=== PATIENT | female | born 1995 | race Hispanic/Latino ===

== ENCOUNTER → 2021-07-13 07:21 | Outpatient (CLI) | payer OTHER, SELFPAY ==
[2021-07-13 08:54] LABS: Glucose Fasting 91 mg/dL (70-100)
[2021-07-13 10:45] LABS: Glucose Tol Interpretation INTERPRETATION
[2021-07-13 10:57] LABS: Glucose 1 Hour 155 mg/dL (70-170)
[2021-07-13 10:59] LABS: Glucose 2 Hour 175 mg/dL (70-140)
[2021-07-13 11:39] LABS: Glucose 3 Hour 103 mg/dL (70-115)
== END ==
PROVIDERS: Referring Provider Nurse Practitioner Obstetrics & Gynecology; Visit Provider Nurse Practitioner Obstetrics & Gynecology
DX: Z34.90 Encounter for supervision of normal pregnancy, unspecified, unspecified trimester (principal); Z13.1 Encounter for screening for diabetes mellitus; Z3A.16 16 weeks gestation of pregnancy
CPT/HCPCS: 36415; 82951; 82952

== ENCOUNTER → 2021-07-20 10:31 | Outpatient (CLI) | payer OTHER, SELFPAY ==
--- NOTE | 2021-07-20 | DI.US.S_ITS ---
PROCEDURE: US OB >= 14 WEEKS FETUS INDICATIONS: ANATOMY SCAN OUTSIDE/PRIOR DATING DATA: Last menstrual period (LMP): 02/06/2021 LMP-based estimated date of delivery (FABIO): 11/03/2021. First dating scan (date and location): 07/20/2021. Estimated date of delivery (FABIO) from first dating scan: 11/13/2021 The calculations are made using the ultra FABIO of 11/13/2021. TECHNIQUE: Real-time scanning was performed of the fetus, with image documentation and biometric measurements. COMPARISON: None. FINDINGS: General: A single living intrauterine gestation is present. Presentation: Vertex. Placenta: Placental position is anterior , without previa. Amniotic fluid index: 18.4 cm, normal range is 5-24 cm. heart rate: 144 beats per minute. Maternal cervical canal: 4.5 cm long. Normal lower limit is 2.5 cm. biometrics: Biparietal diameter: 23 weeks 1 day Head circumference: 23 weeks Abdominal circumference: 23 weeks 3 days Femur length: 23 weeks 6 days Clinically estimated gestational age: 23 weeks 3 days Composite gestational age from present scan: 23 weeks 3 days Estimated weight and percentile: 602 g; 46 percentile Anatomic survey: Neuro: Ventricles are non-dilated at less than 10 mm. Cisterna magna is normal at 3-11 mm. Cerebellum is normal in size and morphology. Nuchal skin fold: Normal at less than 6 mm between 14-21 weeks gestational age. Face: Nose and lips, facial profile are normal. Spine: No evidence for spina bifida. Heart: 4-chambered heart is present, with normal ventricular outflow tracts. Diaphragm: Diaphragm is intact. Stomach: Left-sided stomach is present. Kidneys: No hydronephrosis. Normal is less than 5 mm in 2nd trimester, less than 7 mm in 3rd trimester. Cord: 3-vessel cord has orthotopic insertion. Bladder: Normal in size. Extremities: All 4 extremities identified. IMPRESSION: 1. 23 week 3 day single living IUP corresponding to ultrasound FABIO of 11/13/2021. 2. Normal anatomic survey. We strive to produce accurate, complete, and clear reports of imaging services. To assist us in improving patient care, this report was composed using standard report templates and voice recognition software. Therefore, it may contain abnormal punctuation, insertions and/or omissions. Occasional wrong-word or sound-alike substitutions may occur. Though we review the report and make efforts to correct it, we do recommend that the report be read carefully in proper context to recognize any text inaccuracies. Dictated by: Rg ANDRADE Interpreted: Vinod Martin MD on 07/20/2021 at 13:07 Transcribed by: DEANDRE on 07/20/2021 at 13:10 Approved by: Vinod Martin M.D. on 07/20/2021 at 15:15
== END ==
PROVIDERS: Referring Provider Nurse Practitioner Obstetrics & Gynecology; Visit Provider Nurse Practitioner Obstetrics & Gynecology
DX: Z34.92 Encounter for supervision of normal pregnancy, unspecified, second trimester (principal); Z3A.23 23 weeks gestation of pregnancy
CPT/HCPCS: 76811

== ENCOUNTER → 2021-08-22 11:49 | Outpatient (CLI) | payer OTHER, SELFPAY ==
[2021-08-22 13:37] LABS: Hematocrit 35.8 % (36-46); Hemoglobin 12.2 g/dL (12.0-16.0); Mean Corpuscular Hemoglobin 30.3 PG (26-34); Platelet Count 275 X10^3/uL (150-400); Red Blood Cell Count 4.03 X10^6/uL (4.0-5.2); Red Cell Distribution Width 12.9 % (11.6-14.8); White Blood Cell Count 8.1 X10^3/uL (4.5-11.0)
[2021-08-22 14:03] LABS: Glucose Fasting 81 mg/dL (70-100)
[2021-08-22 14:29] LABS: Glucose 1 Hour 141 mg/dL (70-170)
[2021-08-22 15:32] LABS: Glucose 2 Hour 128 mg/dL (70-140)
[2021-08-22 15:41] LABS: Glucose Tol Interpretation INTERPRETATION
[2021-08-22 17:29] LABS: Glucose 3 Hour 110 mg/dL (70-115)
== END ==
PROVIDERS: Referring Provider Nurse Practitioner Obstetrics & Gynecology; Visit Provider Nurse Practitioner Obstetrics & Gynecology
DX: Z34.90 Encounter for supervision of normal pregnancy, unspecified, unspecified trimester (principal); Z13.1 Encounter for screening for diabetes mellitus; Z3A.28 28 weeks gestation of pregnancy
CPT/HCPCS: 82951; 82952; 85027

== ENCOUNTER → 2021-10-17 17:03 | Outpatient (ROUT) | payer OTHER, SELFPAY | PROVIDERS: Visit Provider Nurse Practitioner Obstetrics & Gynecology | DX: Z34.90 Encounter for supervision of normal pregnancy, unspecified, unspecified trimester (principal); Z36.85 Encounter for antenatal screening for Streptococcus B; Z3A.36 36 weeks gestation of pregnancy | CPT/HCPCS: 87081 ==

== ENCOUNTER → 2021-11-03 11:01 | Outpatient (CLI) | payer OTHER, SELFPAY ==
--- NOTE | 2021-11-03 11:02 | DI.US.S_ITS ---
PROCEDURE: US OB FOLLOW UP INDICATIONS: Growth OUTSIDE/PRIOR DATING DATA: Last menstrual period (LMP): February 06, 2021. LMP-based estimated date of delivery (FABIO): November 13, 2021. First dating scan (date and location): July 20, 2021. Estimated date of delivery (FABIO) from first dating scan: November 13, 2021. TECHNIQUE: Real-time scanning was performed of the fetus, with image documentation and biometric measurements. Endovaginal scanning: Not performed COMPARISON: None. FINDINGS: General: A single living intrauterine gestation is present. Presentation: Cephalic. Placenta: Placental position is anterior , without previa. A few placental calcifications are noted. Amniotic fluid index: 7.8 cm, normal range is 5-24 cm. Single deepest vertical pocket is 2.6 cm. heart rate: 140 beats per minute. Maternal cervical canal: Not well visualized secondary to positioning and advanced gestational age. biometrics: Biparietal diameter: 9.14 cm, 37 weeks and 1 day Head circumference: 33.4 cm, 38 weeks and 1 day Abdominal circumference: 34.1 cm, 38 weeks and 0 days Femur length: 7.4 cm, 38 weeks and 0 days Estimated gestational age based off initial scan: 38 weeks and 4 days Composite gestational age from present scan: 37 weeks and 6 days Estimated weight and percentile: 3349 g which correlates with the 50th percentile based off gestational age Other: Not applicable. IMPRESSION: Single living intrauterine gestation with estimated sonographic gestational age of approximately 37 weeks and 6 days versus 38 weeks and 4 days based off initial ultrasound. Expected interval growth has occurred. Low four-quadrant OBDULIA measuring 7.8 cm which measures less than the 5th percentile for gestational age. We strive to produce accurate, complete, and clear reports of imaging services. To assist us in improving patient care, this report was composed using standard report templates and voice recognition software. Therefore, it may contain abnormal punctuation, insertions and/or omissions. Occasional wrong-word or sound-alike substitutions may occur. Though we review the report and make efforts to correct it, we do recommend that the report be read carefully in proper context to recognize any text inaccuracies. Dictated by: Hu Gibson M.D. on 11/03/2021 at 13:52 Approved by: Hu Gibson M.D. on 11/03/2021 at 13:58
== END ==
PROVIDERS: Referring Provider Nurse Practitioner Obstetrics & Gynecology; Visit Provider Nurse Practitioner Obstetrics & Gynecology
DX: O99.213 Obesity complicating pregnancy, third trimester (principal); O26.843 Uterine size-date discrepancy, third trimester
CPT/HCPCS: 76816

== ENCOUNTER 2021-11-19 13:27 | Inpatient (IN) | payer OTHER, SELFPAY ==
--- NOTE | 2021-11-19 14:04 | PM.OBHP.1 ---
OB HPI Date/Time Date of admission: 11/19/21 Date Patient Seen: 11/19/21 Time Patient Seen: 14:04 History of Present Condition Chief complaint: Eval of Labor : 1 Para: 0 Estimated Date of Delivery: 11/13/21 Estimated Gestational Age (weeks): 40.6 Narrative: Swetha Park is a 26 year old female @ [id number] by LMP and early US who presents for evaluation of labor. Awoke at 0700 with mild, regular contractions. Was seen in clinic this morning with reassuring post dates testing and CE 580/-1, membranes swept. Uncomplicated PN care w/ CNM. Desires low intervention . History of Present care: good care, initiated at week # (10), number of visits (11) and pounds weight gain (3) Dating criteria: LMP confirmed by 1st trimester US Ultrasounds: normal mid trimester US Obstetrical complications: none Medical complications: none Preadmission Labs Blood type: B (+) positive -: Antibody screen: negative, GBS status: negative, HBsAG: negative, HIV: negative and RPR/VDLR: negative -: Chlamydia screen: not detected and Gonorrhea screen: not detected -: Rubella: immune and Varicella: immune HCT: 35.8 HCAB: negative PAP: Normal Cell-free DNA: Negative, female 3 hr GTT: 1 hr (141), 2 hr (128) and 3 hr (110) Fasting blood glucose: 81 Evaluation Evaluation Baseline heart rate: 140 Variability: Moderate (11-25) monitor accelerations: Present Monitor Decelerations: Absent Contraction Frequency (minutes): 3 Uterine Contraction Intensity: Strong/Firm Status: Category l Dilation (cm): 5 Effacement (%): 80 Dilation: >/=5 cm Effacement: >/=80% station: -1 Position of cervix: mid Consistency: soft Morales score: 11 Comments: CE deferred, exam from clinic this morning [facility] Medical History (Updated 11/19/21 @ 14:18 by Evelyn Umanzor CNM) Morbid obesity with BMI of 40.0-44.9, adult Family History (Updated 11/19/21 @ 14:19 by Evelyn Umanzor CNM) Father Hypertension Mother Cancer Diabetes mellitus Social History Smoking Status: Former smoker Meds Home Medications and Allergies Home Medications Medication Instructions Recorded Confirmed Type No Known Home Medications 01/19/21 01/19/21 History Allergies Allergy/AdvReac Type Severity Reaction Status Date / Time No Known Drug Allergies Allergy Unverified 01/19/21 15:54 Review of Systems Review of Systems ROS: Yes All systems reviewed with the patient and are negative except as otherwise documented OB Exam Resp Effort & Inspection: normal respiratory effort Auscultation: clear to auscultation bilaterally Cardio Rate: regular rate Rhythm: regular rhythm Heart Sounds: S1 normal and S2 normal Presentation: vertex Assessment and Plan Assessment and Plan Assessment and Plan narrative: A: Term nullipara Active labor No indication for GBS porphylaxis Cat I FHR P: Admit, routine labor orders. Labor support PRN. Reassess in 4 hours or sooner, PRN. Time Spent with Patient Total time spent with greater than 50% in coordination of care (as documented) at patient's floor/unit and/or counseling patient:: 25 - 35 minutes
[2021-11-19 14:40] LABS: Add Manual Diff / Slide Review NO; Basophils Absolute Auto 0 /uL (0-100); Basophils Percent Auto 0.3 % (0-2); Eosinophils Absolute Auto 0 /uL (0-450); Eosinophils Percent Auto 0.4 % (2-4); Hematocrit 37.1 % (36-46); Hemoglobin 12.8 g/dL (12.0-16.0); Lymphocytes Absolute Auto 1300 /uL (1100-4500); Lymphocytes Percent Auto 12.3 % (25-40); Mean Corpuscular HGB Conc 34.4 % (30-36); Mean Corpuscular Hemoglobin 30.1 PG (26-34); Mean Corpuscular Volume 87.3 fL (80-100); Monocytes Absolute Auto 400 /uL (0-900); Neutrophils Absolute Auto 8800 /uL (1500-7000); Platelet Count 217 X10^3/uL (150-400); Red Blood Cell Count 4.24 X10^6/uL (4.0-5.2); Red Cell Distribution Width 13.3 % (11.6-14.8); White Blood Cell Count 10.6 X10^3/uL (4.5-11.0)
[2021-11-19 14:55] LABS: COVID19 -Nasal RAPID Negative (Negative)
[2021-11-19] MEDS: LACTATED RINGERS 1,000 ML 100 ML IV (21:30)
--- NOTE | 2021-11-20 02:16 | PM.OBPNLAB ---
Date/Time Date Patient Seen: 11/19/21 Time Patient Seen: 22:20 Pain Control Pain control: epidural Comments: Patient labored well int hte tub and in bed on her side. Coping decreased with increasing pelvic pressure and epidural was requested and placed. Now resting comfortably with an epidural. VS: BP 112/59, HR 85bpm, T 35.9F Temporal Pelvic Exam Dilation (cm): 8 Effacement (%): 90 station: -1 Amniotic membrane status: Intact Contractions Monitor mode: External Pitocin rate (mU/min): 0 Contraction frequency (min): 3 Contraction duration (min): 2 Contraction pattern: Regular Contraction intensity: Strong/Firm Status status: Category l Heart Rate Baseline: 140 Monitor Accelerations: Present Monitor Decelerations: Absent Monitor Variability: Moderate Assessment and Plan Assessment: active labor Plan: continuous present management
--- NOTE | 2021-11-20 03:36 | PM.OBPRVD ---
Labor & Delivery Delivery date: 11/20/21 Intrapartal Events: None Cervical ripening method: none Induction method: none Delivery monitor: external FHT and external uterine Route of delivery: Episiotomy description: None L&D Laceration Description: Periurethral - 1st Degree (right) Delivery repair: chromic (3.0) Estimated blood loss (mL): 150 Anesthesia Type: Epidural Narrative: Swetha labored well with an epidural. Was checked and found to be C/C/0 with a BBOW. Pishing was immediately effective w/ SROM for meconium stained fluid. RT was called to standby for the . NSVB of a vigorous baby girl in JANICE position with CNM hands over FOB hands. There was no nuchal cord and the shoulders delivered without additional maneuvers. [place] was lifted to maternal abdomen for drying and skin to skin. Strong cry with Apgars 9/9, RT services were not utilized. 30 units of pitocin in 500mL LR was started at 250mL/hr for AMTSL. After cessation of pulsation, the cord was double clamped by CNM and cut by FOB. Cord blood sample was collected. Gentle cord traction and single maternal push led to spontaneous, Schultze delivery of an apparently intact placenta, membranes and 3VC. Fundus immediately form and bleeding minimal. Right side, 1st degree periurethral split was repaired with 3.0 chromic under adequate epidural anesthesia for good approximation. QBL 150mL. Both mother and baby stable and skin to skin as I left the room. [place] Baby 1: gender: Female Presentation: vertex Position: Right Occiput Anterior Placenta delivery description: Spontaneous Cord Vessel Description: 3 Vessels score (1 min): 9 score (5 min): 9 weight: 3.479 kg Plan for aftercare: Routine care
[2021-11-20] MEDS: ACETAMINOPHEN 325 MG TABLET 650 MG PO ×2 (04:27→10:27)
[2021-11-20] MEDS: IBUPROFEN 600 MG TABLET PO (04:28)
[2021-11-20] MEDS: LANOLIN OINT 7 GM 1 APPLIC TOP (04:29)
[2021-11-20] MEDS: DERMOPLAST SPRAY 20% 60 ML 1 SPRAY TOP (04:29)
[2021-11-20] MEDS: KETOROLAC 30 MG/ML VIAL IV (10:26)
[2021-11-20] MEDS: DOCUSATE 100 MG CAPSULE PO (10:27)
--- NOTE | 2021-11-21 08:02 | PM.OBDS.1 ---
Discharge Providers Provider Date of admission: 11/19/21 13:27 Discharge Date: 11/21/21 Consults: 11/21/21 03:34 Consult to [employer] Routine Comment: Discharge provider: Evelyn Umanzor CNM Summary Hospital Course Date Patient Seen: 11/21/21 Time Patient Seen: 08:02 Diagnoses: O70.0 Hospital Course: PPD1: Stable s/p NSVB with 1st degree periurethral laceration. Voiding and ambulating independently. improved throughout the night with RN assistance, awaiting IBCLC consultation today. Minimal pain is well controlled with PO medication. Vaginal bleeding is light to moderate without clots. Tolerating a general diet. Feeling ready for discharge to home today. Peripartum Data Delivery Method: Natural Vaginal Laceration Description: None Episiotomy description: None complications: none [place] 1: Gender: Female Discharge Diagnosis (1) Del w/ 1 deg lac-unsp: Start Date: 11/20/21 Start Time: 02:57 Status: Acute Status at Discharge Cognitive/behavioral status at discharge: oriented and calm Functional status at discharge: independent ambulation Overall status at discharge: patient is progressing back to baseline Time Spent with Patient Time attestation: Total time spent providing and/or coordinating discharge services: Objective Labs Result Diagrams: 11/19/21 14:30 Exam Vital Signs (past 8 hours): BP 90/56mmHg, HR 74bpm, RR 15/min, T 97.5F Temporal Other: Fundus firm @ U-1, lochia light, no clots. Discharge Plan Discharge Plan Patient Disposition: Home Discharge orders & Medications Prescriptions: New ibuprofen 600 mg Tablet 600 mg PO Q6HR PRN (Reason: Pain, Mild (1-3)) 14 Days Qty: 50 0RF Follow up/Referrals: Evelyn Umanzor CNM [[facility]] - (Follow-up by phone 12/01/21 @ 11:00am Follow-up in office Sunday12/30/21 @ 10:45am) Diet/Activity/Treatments Diet: Regular Activity: Pelvic rest x 6 weeks Skin/Wound/Dressing Care Report to your healthcare provider any signs of infection, such as:: chills, fever, increased pain, unusual drainage and unusual redness Visit Report/Discharge Packet Instructions: DI for Depression
[2021-11-21 12:38] VITALS: BP 114/75; PULSE 82; RESP 18; TEMP 36.4
== END 2021-11-21 12:20 | disposition home or self-care (01) | DRG 807 ==
PROVIDERS: Admitting Provider Nurse Practitioner Obstetrics & Gynecology; Referring Provider Nurse Practitioner Obstetrics & Gynecology; Visit Provider Nurse Practitioner Obstetrics & Gynecology
DX: O48.0 Post-term pregnancy (principal); Z37.0 Single live birth; Z3A.40 40 weeks gestation of pregnancy; O70.0 First degree perineal laceration during delivery; O77.0 Labor and delivery complicated by meconium in amniotic fluid; O99.214 Obesity complicating childbirth; E66.01 Morbid (severe) obesity due to excess calories; Z20.822 Contact with and (suspected) exposure to COVID-19
CPT/HCPCS: 01967; 36415; 59050; 85025; 86850; 86900; 86901; 87635; C9803; G0379; J1885

== ENCOUNTER → 2022-08-03 16:10 | Outpatient (CLI) | payer OTHER, SELFPAY ==
--- NOTE | 2022-08-03 | DI.US.S_ITS ---
PROCEDURE: US OB >= 14 WEEKS FETUS INDICATIONS: 20 WEEK ANATOMY SCAN OUTSIDE/PRIOR DATING DATA: Last menstrual period (LMP): Not available. LMP-based estimated date of delivery (FABIO): Not available. First dating scan (date and location): 08/03/2022. Estimated date of delivery (FABIO) from first dating scan: 12/07/2022 TECHNIQUE: Real-time scanning was performed of the fetus, with image documentation and biometric measurements. COMPARISON: None. FINDINGS: General: A single living intrauterine gestation is present. Presentation: Cephalic. Placenta: Placental position is anterior from , without previa. Amniotic fluid index: 17.5 cm. Single deepest vertical pocket is 6.3 cm cm. heart rate: 160 beats per minute. Maternal cervical canal: 3.9 cm long. Normal lower limit is 2.5 cm. biometrics: Biparietal diameter: 22 weeks 0 day Head circumference: 21 weeks 6 days Abdominal circumference: 21 weeks 6 days Femur length: 22 weeks 4 days Clinically estimated gestational age: n.a. Composite gestational age from present scan: 22 weeks 0 day Estimated weight and percentile: 480 g; percentile not provided. Anatomic survey: Neuro: Ventricles are non-dilated at less than 10 mm. Cisterna magna is normal at 3-11 mm. Cerebellum is normal in size and morphology. Nuchal skin fold: Normal at less than 6 mm between 14-21 weeks gestational age. Face: Nose and lips, facial profile are normal. Spine: No evidence for spina bifida. Heart: 4-chambered heart is present, with normal ventricular outflow tracts. Diaphragm: Diaphragm is intact. Stomach: Left-sided stomach is present. Kidneys: No hydronephrosis. Normal is less than 5 mm in 2nd trimester, less than 7 mm in 3rd trimester. Cord: 3-vessel cord has orthotopic insertion. Moderate no cord insertion. Bladder: Normal in size. Extremities: All 4 extremities identified. IMPRESSION: 1. A single living intrauterine gestation with an estimated gestational age of 22 weeks 0 day corresponding to ultrasound FABIO 12/07/2022. 2. Marginal cord insertion. Otherwise normal anatomic survey. We strive to produce accurate, complete, and clear reports of imaging services. To assist us in improving patient care, this report was composed using standard report templates and voice recognition software. Therefore, it may contain abnormal punctuation, insertions and/or omissions. Occasional wrong-word or sound-alike substitutions may occur. Though we review the report and make efforts to correct it, we do recommend that the report be read carefully in proper context to recognize any text inaccuracies. Dictated by: Sarah Beth Braswell M.D. on 08/04/2022 at 9:52 Approved by: Sarah Beth Braswell M.D. on 08/04/2022 at 9:58
== END ==
PROVIDERS: Referring Provider Nurse Practitioner Obstetrics & Gynecology; Visit Provider Nurse Practitioner Obstetrics & Gynecology
DX: Z34.92 Encounter for supervision of normal pregnancy, unspecified, second trimester (principal); Z3A.20 20 weeks gestation of pregnancy
CPT/HCPCS: 76811; 76817

== ENCOUNTER 2022-11-17 13:13 | Emergency (ER) | payer OTHER, SELFPAY ==
[2022-11-17 13:18] VITALS: BP 118/82; PULSE 90; RESP 15; TEMP 36.3; O2SAT 97; BMI 43.4
[2022-11-17 13:59] VITALS: BP 128/82; PULSE 76; RESP 18; O2SAT 99
--- NOTE | 2022-11-17 14:33 | ED_ITS ---
HPI - Fall General Chief Complaint: Fall Stated Complaint: slipped on steps at work 37 weeks Time Seen by Provider: 11/17/22 14:06 Source: patient Mode of arrival: Ambulatory History of Present Illness HPI Narrative: 27-year-old female who 1 week ago slipped while going down some stairs. She is 37 weeks . She landed on her left hip. Since that time she has had some increasing pain with walking of her left hip. She reports no abdominal pain, no vaginal bleeding. No loss of fluid. She has seen her primary OB provider earlier this week. She is here because her work stated that because her pain is getting worse that she should come to be evaluated. Related Data Allergies Allergy/AdvReac Type Severity Reaction Status Date / Time No Known Drug Allergies Allergy Verified 11/17/22 13:17 Review of Systems Constitutional Constitutional: Reports system reviewed and no additional complaints, except as documented Gastrointestinal Gastrointestinal: Reports system reviewed and no additional complaints, except as documented Genitourinary Genitourinary: Reports system reviewed and no additional complaints, except as documented Musculoskeletal Musculoskeletal: Reports system reviewed and no additional complaints, except as documented Patient History Medical History Morbid obesity with BMI of 40.0-44.9, adult Family History (Updated 11/19/21 @ 14:19 by Evelyn Umanzor CNM) Father Hypertension Mother Cancer Diabetes mellitus Social History Smoking Status: Never smoker Smoking Status: Never smoker alcohol intake frequency: holidays/special occasions only Substance Use Type: does not use Exam Initial Vital Signs Initial Vital Signs: Vital Signs Temperature 97.4 F L 11/17/22 13:18 Pulse Rate 90 11/17/22 13:18 Respiratory Rate 15 11/17/22 13:18 Blood Pressure 118/82 11/17/22 13:18 Pulse Oximetry 97 11/17/22 13:18 Oxygen Delivery Method Room Air 11/17/22 13:18 [facility] Head: normal to inspection and normocephalic GI Inspection: normal to inspection and distended (Gravid abdomen) Back/Spine/Pelvis Other: No lumbar spinal tenderness. Does have some tenderness along the left SI joint. Neuro General: patient alert and patient awake Course Vital Signs Vital signs: Vital Signs - 8 hr 11/17/22 13:18 11/17/22 13:59 Temperature 97.4 F L Pulse Rate 90 76 Respiratory Rate 15 18 Blood Pressure 118/82 128/82 Pulse Oximetry 97 99 Oxygen Delivery Method Room Air Room Air MDM - Fall MDM Narrative Medical decision making narrative: Patient fell 1 week ago. She has no /OB related complaints. 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 There was no indication for any ultrasound today. She does have left-sided SI joint pain. She has been walking for the past week. Given her status and my concern being so low for fracture that I do feel that we should hold on any radiologic studies for now. Unfortunately patient limited to Tylenol given her status. Will discharge patient home with follow-up. Discharge Plan Departure Patient Disposition: Home Clinical Impression: Hip pain, left Activity Restrictions/Additional Instructions: I have such low suspicion that you have any fractures and given your status that I feel that we should hold on any radiologic studies for now as the wrist here baby is too great. You can take Tylenol for any discomfort. Keep all of your scheduled medical appointments. Return to the emergency department for new or worsening symptoms. Referrals: Evelyn Umanzor CNM [Primary Care Provider] - Stand Alone Forms: Patient Portal/API
== END 2022-11-17 14:48 | disposition home or self-care (01) ==
PROVIDERS: Emergency Provider Emergency Medicine; PCP Nurse Practitioner Obstetrics & Gynecology
DX: M25.552 Pain in left hip (principal); W01.0XXA Fall on same level from slipping, tripping and stumbling without subsequent striking against object, initial encounter; Z3A.37 37 weeks gestation of pregnancy
CPT/HCPCS: 99283

== ENCOUNTER 2022-12-09 08:42 | Inpatient (IN) | payer OTHER, SELFPAY ==
--- NOTE | 2022-12-09 10:16 | PM.OBHP.1 ---
OB HPI Date/Time Date of admission: 12/09/22 Date Patient Seen: 12/09/22 Time Patient Seen: 10:00 History of Present Condition Chief complaint: labor : 2 Para: 1 Estimated Date of Delivery: 12/05/22 Estimated Gestational Age (weeks): 40 Narrative: Swetha Park is a 27 year old female at 40 weeks 4 days by 10 week US, here in labor. Contractions started yesterday after a membrane sweep in the office, continued overnight and increased in intensity this morning. Feeling regular movement, no LOF, small amount of bloody show overnight. Initially discussed going for a walk and re-evaluating in 1-2hrs. After 30 minutes of monitoring, Swetha is feeling increased intensity with contractions, unable to talk with contractions, feels like she will need an epidural soon. [facility] > 40 and closely spaced pregnancies. She is accompanied by her Gigi. History of Present care: good care, initiated at week # (10 ), number of visits (9) and pounds weight gain (12) Dating criteria: based on 1st trimester US only Ultrasounds: normal 1st trimester US and normal mid trimester US Obstetrical complications: none Medical complications: other (BMI > 40) Preadmission Labs Blood type: B (+) positive -: Antibody screen: negative, GBS status: negative, HBsAG: negative, HIV: negative and RPR/VDLR: negative -: Chlamydia screen: not detected and Gonorrhea screen: not detected -: Rubella: immune and Varicella: immune HCT: 12.2 HCAB: negative PAP: Normal Cell-free DNA: Negative 1 hr GTT: 131 Prior (ies) History: 11/2021, NSVB with GDMA1 Evaluation Evaluation Baseline heart rate: 155 Variability: Average (6-10) monitor accelerations: Present Monitor Decelerations: Early Contraction Frequency (minutes): 3 (2-5) Uterine Contraction Intensity: Moderate Status: Category l Dilation (cm): 3 Effacement (%): 75 Dilation: 3-4 cm Effacement: >/=80% station: -2 Position of cervix: posterior Consistency: soft Morales score: 8 [facility] Medical History Morbid obesity with BMI of 40.0-44.9, adult Family History Father Hypertension Mother Cancer Diabetes mellitus Social History (Updated 12/09/22 @ 10:51 by Bridgette Alvarado CNM, ARNP) household members: spouse, family and children occupational status: employed do you feel safe at home: Yes Smoking Status: Never smoker alcohol intake: former substance use type: does not use Meds Home Medications and Allergies Allergies Allergy/AdvReac Type Severity Reaction Status Date / Time No Known Drug Allergies Allergy Verified 11/17/22 13:17 Review of Systems Review of Systems ROS: Yes All systems reviewed with the patient and are negative except as otherwise documented OB Exam Vital signs Blood Pressure: 129/80 Pulse Rate: 76 Temperature: 97.5 F Resp Effort & Inspection: normal respiratory effort and able to speak in complete sentences Presentation: vertex Objective Labs 12/09/22 11:31 Assessment and Plan Assessment and Plan Assessment and Plan narrative: A: 27yo at 40 weeks 4 days Early labor GBS negative Rh positive Intact membranes FHR Cat 1 P: Admit to L&D Continuous monitoring Alternate movement and rest, epidural as desired Continuous labor support Anticipate NSVB
[2022-12-09 10:41] VITALS: BP 129/80; PULSE 76; TEMP 36.4
[2022-12-09 11:00] VITALS: BP 129/80
[2022-12-09 11:18] LABS: Add Manual Diff / Slide Review NO; Basophils Absolute Auto 0 /uL (0-100); Basophils Percent Auto 0.3 % (0-2); Eosinophils Absolute Auto 0 /uL (0-450); Eosinophils Percent Auto 0.1 % (2-4); Lymphocytes Absolute Auto 900 /uL (1100-4500); Mean Corpuscular HGB Conc 34.1 % (30-36); Mean Corpuscular Volume 88.1 fL (80-100); Monocytes Absolute Auto 200 /uL (0-900); Monocytes Percent Auto 3.3 % (3-14); Neutrophils Absolute Auto 5000 /uL (1500-7000); Neutrophils Percent Auto 81.3 % (50-75); Platelet Count 106 X10^3/uL (150-400); Red Blood Cell Count 1.92 X10^6/uL (4.0-5.2); Red Cell Distribution Width 13.6 % (11.6-14.8); White Blood Cell Count 6.2 X10^3/uL (4.5-11.0)
[2022-12-09 11:22] LABS: Hematocrit 16.9 % (36-46); Hemoglobin 5.8 g/dL (12.0-16.0)
[2022-12-09 11:39] LABS: Add Manual Diff / Slide Review NO; Basophils Absolute Auto 100 /uL (0-100); Basophils Percent Auto 0.5 % (0-2); Eosinophils Absolute Auto 0 /uL (0-450); Eosinophils Percent Auto 0.1 % (2-4); Hemoglobin 12.3 g/dL (12.0-16.0); Lymphocytes Absolute Auto 1900 /uL (1100-4500); Lymphocytes Percent Auto 13.5 % (25-40); Mean Corpuscular HGB Conc 34.1 % (30-36); Mean Corpuscular Hemoglobin 29.4 PG (26-34); Mean Corpuscular Volume 86.3 fL (80-100); Monocytes Absolute Auto 400 /uL (0-900); Neutrophils Absolute Auto 11700 /uL (1500-7000); Neutrophils Percent Auto 82.9 % (50-75); Platelet Count 226 X10^3/uL (150-400); Red Blood Cell Count 4.17 X10^6/uL (4.0-5.2); Red Cell Distribution Width 13.8 % (11.6-14.8); White Blood Cell Count 14.1 X10^3/uL (4.5-11.0)
[2022-12-09] MEDS: FENT 2MCG/ML BUPIV 0.1% EPI 200 MCG/100 ML PLAST..BAG 6 MCG EPIDURAL ×2 (12:00→17:01)
--- NOTE | 2022-12-09 12:32 | PM.OBPNLAB ---
Date/Time Date Patient Seen: 12/09/22 Time Patient Seen: 12:30 Pain Control Pain control: epidural Comments: Swetha labored with intensifying contractions every 2-5 minutes with CNM, SNM and RN at bedside for support. She requested an epidural and is now is resting comfortably in bed following placement. BP: 110/73 mmHg P: 82 bpm T: 36.4C Pelvic Exam Dilation (cm): 5 Effacement (%): 80 station: -2 Amniotic membrane status: Intact Contractions Monitor mode: External Contraction frequency (min): 5 Contraction duration (min): 1 Contraction pattern: Regular (difficult to trace on external monitor) Contraction intensity: Moderate Status status: Category l Heart Rate Baseline: 160 Monitor Accelerations: Present Monitor Decelerations: Early Monitor Variability: Moderate Assessment and Plan Assessment: active labor Plan: continuous present management Comments: A: 27yo at 40 weeks 4 days Spontaneous active labor GBS negative Rh positive Epidural Intact membranes FHR Cat 1 P: Change position frequently, promote rest Monitor for signs of infection, WBC 14 on admission Reassess in 2-4hrs or sooner PRN Anticipate NSVB
--- NOTE | 2022-12-09 13:02 | P.PCN_ITS ---
[facility] Pre-procedure Procedure: Continuous Lumbar Epidural for L&D Attending OB provider: Bridgette Alvarado PMH/ROS narrative: 27yo female in labor at full-term requesting epidural Hx: No personal or family history of anesthesia problems. PSH/Anesthesia history narrative: Labor epidural Exam narrative: BMI 44. See anesthesia pre-evaluation for other details. ASA Class: III Labs: Hct 36.0 % (36-46) 12/09/22 11:31 Plt Count 226 X10^3/uL (150-400) 12/09/22 11:31 Medications: Current Medications Generic Name Dose Route Start Last Admin Trade Name Freq PRN Reason Stop Dose Admin Acetaminophen 650 mg 12/09/22 10:10 Acetaminophen 325 Mg Tablet PO Q6H PRN Fever/Mild Pain (1-3) Calcium Carbonate 1,000 mg 12/09/22 10:10 Calcium Carbonate 500 Mg Tab PO Q4HR PRN Dyspepsia Carboprost Tromethamine 250 mcg 12/09/22 10:10 Carboprost 250 Mcg/Ml Ampul IM Q90M PRN Bleeding Diphenhydramine HCl 25 mg 12/09/22 12:57 Diphenhydramine 50 Mg/Ml Vial IV Q10M PRN Pruritis Ephedrine Sulfate 10 mg 12/09/22 12:57 Ephedrine 50 Mg/Ml Vial IV Q5M PRN Blood pressure decrease more than 20% of baseline. Fentanyl 100 mcg 12/09/22 10:10 Fentanyl 100 Mcg/2 Ml Inj IV Q1H PRN Pain, Severe (7-10) Oxytocin/Lactated Ringer's 30 unit in 500 mls @ 200 mls/hr 12/09/22 10:10 Oxytocin Premix IV CONT PRN Bleeding Protocol Tranexamic Acid 1,000 mg/ 100 mls @ 200 mls/hr 12/09/22 10:10 Sodium Chloride IV NOW PRN Bleeding Lactated Ringer's 1,000 mls @ 100 mls/hr 12/09/22 10:15 Lactated Ringers IV CONT ULISES Bupivacaine HCl 25 ml/ Sodium 100 mls @ 6 mls/hr 12/09/22 13:00 Chloride EPIDURAL CONT ULISES Lidocaine HCl 20 ml 12/09/22 10:10 Lidocaine 1% 20 Ml INJ INTRA-OP PRN Post Delivery Methylergonovine Maleate 0.2 mg 12/09/22 10:10 Methylergonovine 0.2 Mg Tablet PO Q6HR PRN Heavy Bleeding Methylergonovine Maleate 0.2 mg 12/09/22 10:10 Methylergonovine 0.2 Mg/Ml Vial IM NOW PRN Bleeding Misoprostol 800 mcg 12/09/22 10:10 Misoprostol 200 Mcg Tablet IN NOW PRN Bleeding Misoprostol 400 mcg 12/09/22 10:10 Misoprostol 200 Mcg Tablet SL NOW PRN Bleeding Nalbuphine HCl 2.5 mg 12/09/22 12:57 Nalbuphine 20 Mg/Ml Ampul IV Q10M PRN Pruritis Naloxone HCl 0.2 mg 12/09/22 10:10 Naloxone 0.4 Mg/Ml Vial IV Q2MIN PRN Opiate Reversal Ondansetron HCl 8 mg 12/09/22 14:00 Ondansetron 4 Mg/2 Ml Inj IV Q8HR ULISES Oxytocin 10 unit 12/09/22 10:10 Oxytocin 10 Unit/Ml Vial IM NOW PRN Bleeding Allergies: Allergies Allergy/AdvReac Type Severity Reaction Status Date / Time No Known Drug Allergies Allergy Verified 11/17/22 13:17 Procedure Insertion date: 12/09/22 Insertion time: 11:58 Interspace: First attempt L5-S1; unable to access interspace. Second attempt L2- 3 Patient position: sitting Needle: 17 gauge Tuohy Loss of resistance with: saline NANETTE at (cm): 8 Catheter placed at SKIN (cm): 14 Catheter in SPACE (cm): 6 Insertion: Yes Paresthesia with insertion Initial Medications TEST DOSE time: 12:00 BOLUS DOSE time: 13:08 BOLUS DOSE (mL): 3 BOLUS DOSE med: 0.125% bupivacaine with fentanyl 10 mcg/mL Infusion Initial rate (mL/hr): 10 Post-procedure Anesthesia time START: 11:38 Anesthesia time END: 12:49 Post-procedure Anesthesia Assessment: Yes CV function: HR/BP stable, Yes Resp function: RR/sat/airway adequate, Yes Pain control adequate, Yes Nausea & vomiting absent, Yes Temperature > 36 C and Yes Mental status appropriate
--- NOTE | 2022-12-09 16:54 | PM.OBPNLAB ---
Date/Time Date Patient Seen: 12/09/22 Time Patient Seen: 16:50 Pain Control Pain control: epidural Comments: Swetha is resting in bed, epidural is working well for pain control. Started feeling really nauseous in the last half hour. Given x1 dose Zofran, was vomiting when I entered the room and now feels better. BP: 114/71 P: 60 bpm Sp02: 99% Pelvic Exam Dilation (cm): 8 Effacement (%): 100 station: -1 Amniotic membrane status: Intact Contractions Monitor mode: External Contraction frequency (min): 5 (2-5) Contraction duration (min): 1 Contraction pattern: Regular (difficult to trace on external monitor) Contraction intensity: Moderate Status status: Category l Heart Rate Baseline: 140 Monitor Accelerations: Present Monitor Decelerations: Absent Monitor Variability: Moderate Assessment and Plan Assessment: active labor Plan: continuous present management Comments: A: 27yo at 40 weeks 4 days Active labor GBS negative, no signs of infection Rh positive Epidural working well Intact membranes FHR Cat 1 P: Continue expectant management Offered AROM as option for augmentation, Swetha declines at this time Empty bladder q4hrs Position changes with peanut ball Reassess in 2-4 hours or sooner PRN
[2022-12-09] MEDS: OXYTOCIN PREMIX 30 UNIT/500 ML PLAST..BAG 200 UNIT IV (18:52)
--- NOTE | 2022-12-09 19:15 | P.PCNOB_ITS ---
Labor & Delivery Delivery date: 12/09/22 Intrapartal Events: None Cervical ripening method: none Induction method: none Delivery monitor: external FHT Route of delivery: Episiotomy description: None L&D Laceration Description: None Quantitative Blood Loss: 560 Anesthesia Type: Epidural Narrative: Labor progressed well without augmentation, with an epidural working effectively for pain control. Swetha felt the spontaneous urge to push and a bulging bag was visible at her vaginal introitus; she pushed effectively for 5 minutes, with FHR Cat 1 throughout. NSVB of baby bakari Bolton at 1835 in LOT position, caught by SAMIRA Yu with CNM and SNM supervising; membranes remained intact and were gently pulled off baby's chest and face following delivery as shoulders delivered easily through nuchal cord x1 and body cord x1. CNM unwrapped cord with father's help and placed baby on Swetha's abdomen when she was ready to receive her. Apgars 9/9. Cord was cut by SAMIRA Yu at 11 minutes of life after cord pulsing had stopped. Cord blood collected per hospital protocol. 30u Pitocin in 500ml LR infusion started for AMSTL. Cord traction and one maternal push resulted in a spontaneous, Schultze, delivery of an apparently intact placenta, membranes and 3 vessel cord. Bleeding with delivery of placenta; Pitocin increased to bolus rate, fundus immediately firm, midline at U-1. Perineum inspected and found to be intact, shallow periurethral lacerations noted bilaterally. QBL is 560mL. Straight cathed for normal amount and TXA 1g administered. Mom and baby left stable and skin to skin. Gigi and Swetha are thrilled to meet their baby bakari Bolton. Bridgette HERNANDEZ, ENRIQUE, IBCLC Meera Bravo, LOY [place] Baby 1: Infant gender: Female Presentation: vertex Position: Left Occiput Transverse Placenta delivery description: Spontaneous (Patiño) Cord Vessel Description: 3 Vessels, Nuchal Cord (loose x1) and Around Body x1 score (1 min): 9 score (5 min): 9 weight: 3.466 kg Plan for aftercare: Routine care
[2022-12-09] MEDS: TRANEXAMIC ACID 1,000 MG in SODIUM CHLORIDE 0.9% 100 ML 200 MG IV (19:50)
[2022-12-09] MEDS: KETOROLAC 30 MG/ML VIAL IV (20:59)
[2022-12-09] MEDS: DERMOPLAST SPRAY 20% 60 ML 1 SPRAY TOP (21:01)
--- NOTE | 2022-12-10 13:32 | P.DS_ITS ---
Discharge Providers Provider Date of admission: 12/09/22 08:42 Discharge Date: 12/10/22 Primary care physician: Evelyn Umanzor CNM Consults: 12/10/22 19:09 Consult to Stone And Plate Preparer Apprentice Routine Comment: Discharge provider: Bridgette Alvarado CNM, ARNP Summary Hospital Course Date Patient Seen: 12/10/22 Time Patient Seen: 13:32 Diagnoses: o80, z3a.40 Hospital Course: PPD#1: NSVB over intact perineum. QBL 560. Ambulating, voiding and independently_. Bleeding is light without clots. Pain well controlled without medication. Tolerating a normal diet. Supportive Gigi at bedside, they both would like to go home this afternoon, feeling confident about care. Peripartum Data Delivery Method: Natural Vaginal Laceration Description: None Episiotomy description: None complications: none [place] 1: Gender: Female Disposition of : home Discharge Diagnosis (1) Morbid obesity with BMI of 40.0-44.9, adult: Status: Acute (2) (normal spontaneous vaginal delivery): Status: Acute (3) 40 weeks gestation of : Status: Acute (4) Breast feeding status of mother: Status: Acute Status at Discharge Cognitive/behavioral status at discharge: at baseline, oriented Functional status at discharge: independent ambulation Overall status at discharge: patient is progressing back to baseline Time Spent with Patient Time attestation: Total time spent providing and/or coordinating discharge services: Objective Labs 12/09/22 11:31 Exam Vital Signs (past 8 hours): BP: 113/76 mmHg HR: 74bpm T: 97.8 Temporal Resp Effort & Inspection: normal respiratory effort and able to speak in complete sentences Other: Fundus firm, midline, at U, light bleeding without clots Skin General: no rashes or lesions noted Neuro General: patient oriented x3 Extrem General: normal to inspection and full ROM Psych Appearance: grossly normal Mental Status: mental status grossly normal Discharge Plan Discharge Plan Patient Disposition: Home Discharge orders & Medications Follow up/Referrals: Evelyn Umanzor CNM [Primary Care Provider] - (2 weeks PHONE: Sunday12/25/22 at 2:45pm 6 weeks IN PERSON: Sunday01/19/23 at 1:30pm) Bridgette Alvarado CNM, ARNP [Advanced Licensed Dispensing Optician] - 2 Weeks (and 6 weeks as scheduled via e-mail) Diet/Activity/Treatments Diet: Diet as Tolerated and Regular Diet comment: Lots of hydration, high fiber Activity: In and around bed for 2 weeks Skin/Wound/Dressing Care Skin care: Gentle Report to your healthcare provider any signs of infection, such as:: chills, fever, increased pain, unusual drainage and unusual redness Visit Report/Discharge Packet Instructions: DI for Depression Stand Alone Forms: Discharge: Care, Patient Portal/API Discharge Data Primary Care Provider: Evelyn Umanzor Attending Provider: Evelyn Umanzor Admit Date/Time: 12/09/22 08:42
[2022-12-10 14:30] VITALS: BP 113/75; PULSE 74; RESP 15; TEMP 36.4
== END 2022-12-10 15:25 | disposition home or self-care (01) | DRG 807 ==
PROVIDERS: Advanced Practice Midwife; Admitting Provider Nurse Practitioner Obstetrics & Gynecology; PCP Nurse Practitioner Obstetrics & Gynecology; Referring Provider Nurse Practitioner Obstetrics & Gynecology; Visit Provider Nurse Practitioner Obstetrics & Gynecology
DX: O99.214 Obesity complicating childbirth (principal); Z37.0 Single live birth; Z3A.40 40 weeks gestation of pregnancy
CPT/HCPCS: 36415; 59050; 85025; 86850; 86900; 86901; G0378; G0379; J1885; J2590